=== PATIENT | female | born 1935 | race Caucasian/White ===

== ENCOUNTER 2016-10-17 10:41 | Observation (INO) | payer OTHER ==
[~2016-10-17] VITALS: Ht 162.6 cm; Wt 75.4 kg
[~2016-10-17 10:41] MED LIST: ADULT LOW DOSE81 M1 PO; AMBIEN10 MG PO; AMLODIPINE BESYL5 MG PO; ANEXSIA 5-3251 EACH PO; ARICEPT10 MG PO; ASPIRIN81 M1 PO; ASPIRIN81 M2 PO; Ambien PO; BENTYL20 MG PO; CELEBREX100 MG PO; COUMADIN,JANTOVE1 MG PO; CRANBERRY400 MG PO; CYMBALTA30 MG PO; CYMBALTA60 MG PO; Centrum Silver,Certa PO; Colace PO; Cymbalta PO; DAILY VITE1 EAC1 PO; DIOVAN HCT 11 TABLE1 PO; DIOVAN HCT 81 TABLET PO; DULOXETINE HCL30 MG PO; DURAGESIC12 MCG TD; DURAGESIC50 MCG TD; Dyazide, Maxzide 37. PO; ESCITALOPRAM OX10 MG PO; Ecotrin PO; FENTANYL1 EAC4 TD; Feosol PO; GABAPENTIN300 MG PO; Hyzaar 100-12.5 PO; K-DUR10 ME2 PO; LEXAPRO10 MG PO; LEXAPRO20 MG PO; LEXAPRO5 MG PO; LO-DOSE ASPIRIN81 M2 PO; LOSARTAN-HCTZ1 EAC1 PO; LOSARTAN-HCTZ1 EAC2 PO; LOSARTAN-HCTZ1 EAC3 PO; MEMANTINE PO; MICRO-K,K-DUR,10 ME1 PO; NAMENDA10 MG PO; NEURONTIN100 MG PO; NEURONTIN300 MG PO; Neurontin PO; OCUVITE; OXYCODONE-APAP1 EACH PO; OXYCONTIN10 MG PO; PERCOCET 10/1 TABLET PO; PERCOCET 5/31 TABLET PO; PROMETHAZI6.25 MG/5 PO; Percocet 10/325,Endo PO; RIVASTIGMINE1.5 MG PO; RIVASTIGMINE4.5 MG PO; SPECTRAVITE1 EAC3 PO; STOOL SOFTENER1 EAC2 PO; STOOL SOFTENER100 M1 PO; STOOL SOFTENER100 MG PO; Senokot S,Pericolace PO; TYLENOL PM EX-1 EACH PO; TYLENOL WITH C1 EACH PO; TYLENOL100 MG/1 M PO; ULTRAM50 MG PO; VALIUM2 MG PO; VITAMIN B-6100 MG PO; Valium PO; Vicodin,Norco 5/325 PO; ZOFRAN ODT4 MG PO; [UNRECOGNIZED DRUG - OTHER] PO; [UNRECOGNIZED DRUG - OTHER] PO
[2016-10-17 11:44] LABS: EOSINOPHIL (%) 2.8 % (0-5); EOSINOPHIL COUNT 0.2 K/uL (0-0.3); IMMATURE GRANULOCYTE (%) 0.2 % (0.0-0.7); IMMATURE GRANULOCYTE COUNT 0.1 K/uL; MCH 31.8 PG (29.0-34.0); MCHC 32.8 G/DL (30.0-36.0); MEAN PLAT.VOLUME 9.2 uM^3 (9.5-12.4); MONOCYTE (%) 8.7 % (3-12); MONOCYTE COUNT 0.5 K/uL (0-0.8); NEUTROPHIL (%) 71.7 % (45-76); NEUTROPHIL COUNT 4.3 K/uL (1.8-6.4); PLATELET COUNT 259 K/uL (156-360); RBC DIS.WIDTH-CV 13.5 % (11.8-14.6); RED BLOOD COUNT 3.71 M/uL (3.80-5.20)
[2016-10-17 11:55] LABS: CHLORIDE 107 mEq/L (99-109); POTASSIUM 3.6 mEq/L (3.7-5.4); SODIUM 141 mEq/L (136-147)
[2016-10-17 11:57] LABS: GLUCOSE 91 mg/dL (70-99)
[2016-10-17 11:58] LABS: ANION GAP 11 MEQ/L (2-14)
[2016-10-17 11:59] LABS: TOTAL BILIRUBIN 0.4 mg/dL (0.0-1.0)
[2016-10-17 12:00] LABS: ALKALINE PHOSPHATASE 48 IU/L (3-129)
[2016-10-17 12:01] LABS: GFR ESTIMATE (CALCULATED) 56 mL/min/
[2016-10-17 12:02] LABS: UREA NITROGEN (BUN) 25 mg/dL (9-23)
[2016-10-17 12:05] LABS: TROP-I INTERPRETATION NEGATIVE; TROPONIN-I < 0.01 ng/mL (0.0-0.30)
[2016-10-17] MEDS ORDERED: IBUPROFEN600 MG PO (15:29)
[2016-10-17] MEDS ORDERED: OXYCODONE-ACET1 EACH PO (15:30)
[2016-10-17] MEDS ORDERED: LOSARTAN-HCTZ1 EAC1 PO (15:30)
[2016-10-17 17:09] VITALS: BP 199/85
[2016-10-17 18:40] VITALS: BP 183/89
[2016-10-17 19:08] LABS: TROP-I INTERPRETATION NEGATIVE; TROPONIN-I 0.02 ng/mL (0.0-0.30)
[2016-10-17 23:08] LABS: ADD MIUA? NO; BILIRUBIN NEGATIVE; BLOOD NEGATIVE; COLOR YELLOW ((YELLOW)); GLUCOSE (STRIP) NEGATIVE; KETONES NEGATIVE; LEUKOCYTES NEGATIVE; NITRITE NEGATIVE; PROTEIN (STRIP) NEGATIVE; UCUL ADDED? NO; UROBILINOGEN 0.2 MG/DL (0.2-1.0)
[2016-10-17 23:43] VITALS: BP 185/78
[2016-10-18 01:03] LABS: TROP-I INTERPRETATION NEGATIVE; TROPONIN-I < 0.01 ng/mL (0.0-0.30)
[2016-10-18 04:03] VITALS: BP 142/70
[2016-10-18 06:17] LABS: INTER. NORMALIZED RATIO 1.1; PROTHROMBIN TIME 10.9 (9.2-11.2)
[2016-10-18 06:38] LABS: ANION GAP 9 MEQ/L (2-14); CHLORIDE 104 MEQ/L (99-109); GFR ESTIMATE (CALCULATED) > 59 mL/min/; GLUCOSE 99 mg/dL (70-99); POTASSIUM 3.6 MEQ/L (3.7-5.4); SAMPLE HEMOLYSIS CHECK 0; SAMPLE ICTERIC CHECK 0; SAMPLE LIPEMIA CHECK 0; SODIUM 139 MEQ/L (136-147); UREA NITROGEN (BUN) 19 mg/dL (9-23)
[2016-10-18] MEDS ORDERED: POLYETHYLENE GL17 GM PO (08:23)
[2016-10-18] MEDS ORDERED: AMLODIPINE BESYL5 MG PO (08:24)
[2016-10-18 11:50] VITALS: BP 117/56
== END 2016-10-18 12:10 | disposition home or self-care (01) ==
LOC: EME 10:41 → EDOF 13:04 → 5WEST 16:18
PROVIDERS: Emergency Medicine; Nurse Practitioner Adult Health
DX: R07.89 Other chest pain (principal); C34.90 Malignant neoplasm of unspecified part of unspecified bronchus or lung; I25.10 Atherosclerotic heart disease of native coronary artery without angina pectoris; Z95.5 Presence of coronary angioplasty implant and graft; I10 Essential (primary) hypertension; Z85.3 Personal history of malignant neoplasm of breast; Z85.038 Personal history of other malignant neoplasm of large intestine; E87.6 Hypokalemia; Z93.3 Colostomy status; Z88.8 Allergy status to other drugs, medicaments and biological substances; K21.9 Gastro-esophageal reflux disease without esophagitis; Z86.73 Personal history of transient ischemic attack (TIA), and cerebral infarction without residual deficits
CPT/HCPCS: 71010; 74020; 80048; 80053; 81003; 83690; 84484; 85025; 85610; 93005; 99281; 99285; G0378; J1644

== ENCOUNTER 2016-11-16 02:11 | Inpatient (IN) | payer OTHER ==
[~2016-11-16] VITALS: Ht 160 cm; Wt 77.0 kg
[~2016-11-16 02:11] MED LIST changes: +IBUPROFEN600 MG PO; +OXYCODONE-ACET1 EACH PO; +POLYETHYLENE GL17 GM PO
[2016-11-16 03:02] LABS: HEMATOCRIT 37.4 % (36.0-46.0); MCH 31.4 PG (29.0-34.0); MCHC 32.6 G/DL (30.0-36.0); MCV 96.4 FL (83-99); PLATELET COUNT 259 K/uL (156-360); RBC DIS.WIDTH-CV 12.9 % (11.8-14.6); RBC DIS.WIDTH-SD 43.5 % (39-53); RED BLOOD COUNT 3.88 M/uL (3.80-5.20); WHITE BLOOD COUNT 13.4 K/uL (4.1-10.2)
[2016-11-16 03:12] LABS: CHLORIDE 107 mEq/L (99-109); POTASSIUM 3.1 mEq/L (3.7-5.4); SODIUM 142 mEq/L (136-147)
[2016-11-16 03:13] LABS: PROTHROMBIN TIME 10.5 (9.2-11.2); PTT 23.9 (25-32)
[2016-11-16 03:14] LABS: GLUCOSE 148 mg/dL (70-99)
[2016-11-16 03:15] LABS: ANION GAP 10 MEQ/L (2-14)
[2016-11-16 03:16] LABS: TOTAL BILIRUBIN 0.6 mg/dL (0.0-1.0)
[2016-11-16 03:18] LABS: ALKALINE PHOSPHATASE 74 IU/L (3-129); GFR ESTIMATE (CALCULATED) 38 mL/min/
[2016-11-16 03:19] LABS: UREA NITROGEN (BUN) 26 mg/dL (9-23)
[2016-11-16 03:21] LABS: LIPASE 7 U/L (1.0-51.0)
[2016-11-16 05:19] LABS: ADD MIUA? YES; BILIRUBIN NEGATIVE; BLOOD NEGATIVE; COLOR YELLOW ((YELLOW)); GLUCOSE (STRIP) NEGATIVE; KETONES NEGATIVE; LEUKOCYTES TRACE; NITRITE NEGATIVE; PROTEIN (STRIP) NEGATIVE; SPECIFIC GRAVITY 1.012 (1.000-1.030); UROBILINOGEN 0.2 MG/DL (0.2-1.0)
[2016-11-16 05:40] LABS: BACTERIA NONE SEEN /HPF; EPITHELIAL CELLS RARE /HPF; MUCUS TRACE /LPF; RED BLOOD CELLS 0-5 /HPF (0-5); UCUL ADDED? NO; WHITE BLOOD CELLS 0-5 /HPF (0-5)
[2016-11-16 07:18] VITALS: BP 174/76
[2016-11-16 11:13] VITALS: BP 121/57
[2016-11-16 12:44] LABS: HEMATOCRIT 38.4 % (36.0-46.0); MCH 31.1 PG (29.0-34.0); MCHC 32.6 G/DL (30.0-36.0); MCV 95.5 FL (83-99); MEAN PLAT.VOLUME 9.6 uM^3 (9.5-12.4); PLATELET COUNT 233 K/uL (156-360); RBC DIS.WIDTH-CV 13.1 % (11.8-14.6); RBC DIS.WIDTH-SD 45.6 % (39-53); RED BLOOD COUNT 4.02 M/uL (3.80-5.20); WHITE BLOOD COUNT 10.3 K/uL (4.1-10.2)
[2016-11-16 13:24] LABS: ALKALINE PHOSPHATASE 69 IU/L (3-129); ANION GAP 11 MEQ/L (2-14); CHLORIDE 109 MEQ/L (99-109); GFR ESTIMATE (CALCULATED) > 59 mL/min/; POTASSIUM 3.5 MEQ/L (3.7-5.4); SAMPLE HEMOLYSIS CHECK 0; SAMPLE ICTERIC CHECK 0; SAMPLE LIPEMIA CHECK 0; SODIUM 142 MEQ/L (136-147); TOTAL BILIRUBIN 0.6 MG/DL (0.0-1.0); UREA NITROGEN (BUN) 19 mg/dL (9-23)
[2016-11-16 13:33] LABS: GLUCOSE 91 mg/dL (70-99)
[2016-11-16 16:51] VITALS: BP 145/67
[2016-11-16 20:06] VITALS: BP 118/56
[2016-11-16 23:28] VITALS: BP 136/62
[2016-11-17 03:45] VITALS: BP 126/59
[2016-11-17 08:17] VITALS: BP 171/77
[2016-11-17 12:05] VITALS: BP 102/59
[2016-11-17 13:14] LABS: ANION GAP 8 MEQ/L (2-14); CHLORIDE 107 MEQ/L (99-109); GFR ESTIMATE (CALCULATED) 56 mL/min/; GLUCOSE 93 mg/dL (70-99); POTASSIUM 3.3 MEQ/L (3.7-5.4); SAMPLE HEMOLYSIS CHECK 0; SAMPLE ICTERIC CHECK 0; SAMPLE LIPEMIA CHECK 0; SODIUM 140 MEQ/L (136-147); UREA NITROGEN (BUN) 16 mg/dL (9-23)
[2016-11-17 14:44] LABS: C DIFF TOXIN NEGATIVE (NEGATIVE)
[2016-11-17 14:48] LABS: PROBE CHECK PASS; SPECIMEN PROCESSING CONTROL PASS
[2016-11-18 00:08] VITALS: BP 177/76
[2016-11-18 07:27] VITALS: BP 138/52
[2016-11-18 07:47] LABS: EOSINOPHIL (%) 3.5 % (0-5); EOSINOPHIL COUNT 0.2 K/uL (0-0.3); HEMATOCRIT 33.3 % (36.0-46.0); IMMATURE GRANULOCYTE (%) 0.4 % (0.0-0.7); MCH 32.4 PG (29.0-34.0); MCHC 33.6 G/DL (30.0-36.0); MCV 96.2 FL (83-99); MEAN PLAT.VOLUME 9.8 uM^3 (9.5-12.4); MONOCYTE (%) 11.2 % (3-12); MONOCYTE COUNT 0.6 K/uL (0-0.8); NEUTROPHIL (%) 67.6 % (45-76); NEUTROPHIL COUNT 3.9 K/uL (1.8-6.4); PLATELET COUNT 244 K/uL (156-360); RBC DIS.WIDTH-CV 13.1 % (11.8-14.6); RBC DIS.WIDTH-SD 45.4 % (39-53); RED BLOOD COUNT 3.46 M/uL (3.80-5.20)
[2016-11-18 07:53] LABS: WHITE BLOOD COUNT 5.7 K/uL (4.1-10.2)
[2016-11-18 07:57] LABS: ALKALINE PHOSPHATASE 58 IU/L (3-129); ANION GAP 9 MEQ/L (2-14); CHLORIDE 108 MEQ/L (99-109); GFR ESTIMATE (CALCULATED) > 59 mL/min/; GLUCOSE 97 mg/dL (70-99); SAMPLE HEMOLYSIS CHECK 0; SAMPLE ICTERIC CHECK 0; SAMPLE LIPEMIA CHECK 0; SODIUM 143 MEQ/L (136-147); TOTAL BILIRUBIN 0.4 MG/DL (0.0-1.0); UREA NITROGEN (BUN) 12 mg/dL (9-23)
[2016-11-18 10:39] LABS: MAGNESIUM 2.1 mg/dl (1.3-2.7)
[2016-11-18 12:14] VITALS: BP 136/72
[2016-11-18 16:39] VITALS: BP 137/64
[2016-11-18 23:52] VITALS: BP 168/78
[2016-11-19 07:50] VITALS: BP 194/88
[2016-11-19 12:23] LABS: ANION GAP 7 MEQ/L (2-14); CHLORIDE 110 MEQ/L (99-109); GFR ESTIMATE (CALCULATED) > 59 mL/min/; POTASSIUM 3.4 MEQ/L (3.7-5.4); SAMPLE HEMOLYSIS CHECK 0; SAMPLE ICTERIC CHECK 0; SAMPLE LIPEMIA CHECK 0; SODIUM 144 MEQ/L (136-147); UREA NITROGEN (BUN) 13 mg/dL (9-23)
[2016-11-19 12:26] LABS: GLUCOSE 154 mg/dL (70-99)
[2016-11-19] MEDS ORDERED: LOSARTAN POTASS50 MG PO (14:21)
[2016-11-19] MEDS ORDERED: FENTANYL1 EAC4 TD (14:23)
[2016-11-19 14:30] VITALS: BP 190/74
[2016-11-19 16:30] VITALS: BP 192/80
[2016-11-19 16:36] VITALS: BP 144/80
== END 2016-11-19 18:02 | DRG 389 ==
LOC: EME → EDBD 02:11 → EDOF 05:14 → 2EAST 05:14
PROVIDERS: Emergency Medicine; Hospitalist; Internal Medicine
DX: K56.60 Unspecified intestinal obstruction (principal); I10 Essential (primary) hypertension; E87.6 Hypokalemia; C34.90 Malignant neoplasm of unspecified part of unspecified bronchus or lung; F03.90 Unspecified dementia, unspecified severity, without behavioral disturbance, psychotic disturbance, mood disturbance, and anxiety; Z86.73 Personal history of transient ischemic attack (TIA), and cerebral infarction without residual deficits; K21.9 Gastro-esophageal reflux disease without esophagitis; Z87.891 Personal history of nicotine dependence; F32.9 Major depressive disorder, single episode, unspecified; Z93.2 Ileostomy status; K43.9 Ventral hernia without obstruction or gangrene; K43.5 Parastomal hernia without obstruction or gangrene; G89.29 Other chronic pain; Z96.653 Presence of artificial knee joint, bilateral
CPT/HCPCS: 70450; 71010; 71260; 74000; 74176; 80048; 80053; 81003; 83605; 83690; 83735; 85025; 85027; 85610; 85730; 86850; 86900; 86901; 87493; 93005; 99281; 99285; J1170; J1630; J1644; J2060; J2405; J3480; J7030; S0028

== ENCOUNTER 2018-05-15 10:23 | Emergency (ER) | payer OTHER ==
[~2018-05-15] VITALS: Ht 160 cm; Wt 63.1 kg
[~2018-05-15 10:23] MED LIST changes: +LOSARTAN POTASS50 MG PO
[2018-05-15 11:15] LABS: BASOPHIL (%) 0.7 % (0-1); EOSINOPHIL COUNT 0.1 K/uL (0-0.3); HEMATOCRIT 34.3 % (36.0-46.0); HEMOGLOBIN 11.1 G/DL (11.9-15.5); IMMATURE GRANULOCYTE (%) 0.3 % (0.0-0.7); LYMPHOCYTE (%) 10.4 % (15-42); LYMPHOCYTE COUNT 0.6 K/uL (1.0-2.8); MCHC 32.4 G/DL (30.0-36.0); MCV 95.8 FL (83-99); MONOCYTE (%) 7.9 % (3-12); MONOCYTE COUNT 0.5 K/uL (0-0.8); NEUTROPHIL (%) 78.7 % (45-76); NEUTROPHIL COUNT 4.8 K/uL (1.8-6.4); PLATELET COUNT 241 K/uL (156-360); RBC DIS.WIDTH-SD 49.5 % (39-53); RED BLOOD COUNT 3.58 M/uL (3.80-5.20)
[2018-05-15 11:24] LABS: ALBUMIN 3.4 g/dL (3.2-4.8)
[2018-05-15 11:25] LABS: CHLORIDE 110 mEq/L (99-109); POTASSIUM 3.6 mEq/L (3.7-5.4); SODIUM 141 mEq/L (136-147)
[2018-05-15 11:27] LABS: GLUCOSE 84 mg/dL (70-99); TOTAL PROTEIN 6.6 g/dL (6.4-8.3)
[2018-05-15 11:29] LABS: TOTAL BILIRUBIN 0.3 mg/dL (0.0-1.0)
[2018-05-15 11:30] LABS: ALKALINE PHOSPHATASE 74 IU/L (3-129)
[2018-05-15 11:31] LABS: CREATININE 1.1 mg/dL (0.6-1.3); GFR ESTIMATE (CALCULATED) 50 mL/min/
[2018-05-15 11:32] LABS: AST (GOT) 15 IU/L (2-34); UREA NITROGEN (BUN) 32 mg/dL (9-23)
[2018-05-15 11:33] LABS: ALT (GPT) 13 IU/L (3-49)
[2018-05-15 12:14] LABS: APPEARANCE CLEAR ((CLEAR)); BILIRUBIN NEGATIVE; BLOOD NEGATIVE; COLOR YELLOW ((YELLOW)); GLUCOSE (STRIP) NEGATIVE; KETONES NEGATIVE; LEUKOCYTES SMALL; NITRITE NEGATIVE; PROTEIN (STRIP) NEGATIVE; SPECIFIC GRAVITY 1.018 (1.000-1.030); UROBILINOGEN 0.2 MG/DL (0.2-1.0)
[2018-05-15 12:22] LABS: BACTERIA NONE SEEN /HPF; EPITHELIAL CELLS NONE SEEN /HPF; HYALINE CASTS 0-5 /LPF; MUCUS TRACE /LPF; RED BLOOD CELLS 0-5 /HPF (0-5); UCUL ADDED? NO; WHITE BLOOD CELLS 0-5 /HPF (0-5)
[2018-05-15 17:22] VITALS: BP 140/72
== END 2018-05-15 17:23 ==
LOC: EME 10:23
PROVIDERS: Emergency Medicine
DX: R41.0 Disorientation, unspecified (principal); J44.9 Chronic obstructive pulmonary disease, unspecified; J98.11 Atelectasis; J84.10 Pulmonary fibrosis, unspecified; K21.9 Gastro-esophageal reflux disease without esophagitis; I25.10 Atherosclerotic heart disease of native coronary artery without angina pectoris; F03.90 Unspecified dementia, unspecified severity, without behavioral disturbance, psychotic disturbance, mood disturbance, and anxiety; F32.9 Major depressive disorder, single episode, unspecified; Z93.2 Ileostomy status; Z95.5 Presence of coronary angioplasty implant and graft; Z87.891 Personal history of nicotine dependence; Z98.890 Other specified postprocedural states; Z86.73 Personal history of transient ischemic attack (TIA), and cerebral infarction without residual deficits; Z85.51 Personal history of malignant neoplasm of bladder; Z85.118 Personal history of other malignant neoplasm of bronchus and lung; Z85.3 Personal history of malignant neoplasm of breast; Z90.12 Acquired absence of left breast and nipple; Z90.49 Acquired absence of other specified parts of digestive tract; Z88.8 Allergy status to other drugs, medicaments and biological substances
CPT/HCPCS: 70450; 71045; 80053; 81003; 85025; 99281; 99284